=== PATIENT | male | born 1950 | race Two or more races ===

== ENCOUNTER 2020-01-28 10:33 | Emergency (ER) | payer MEDICARE ==
[~2020-01-28] VITALS: Ht 177.8 cm; Wt 77.6 kg
--- NOTE | 2020-01-28 10:45 | PHYS DOC ---
Past History Past Medical History: CAD, Diabetes Past Surgical History cardiac stents, hip surgery, back surgery Smoking: Chew Alcohol Use: None Drug Use: None General Adult EDM: Chief Complaint: NEURO SYMPTOMS/DEFICITS HPI: HPI: Patient is a 70 year old male who presents via private car driven by his for evaluation of left-sided weakness and difficulty walking. Onset of symptoms noticed since awakening at 7 AM today. Patient was last known well when going to bed last night. Patient has significant difficulty standing and walking which is new. Furthermore he states that he has had some trouble keeping bladder control. Patient is on Plavix and aspirin blood thinners. Patient did not fall last night but states that when he went to the couch this morning he did fall. Denies hitting his head or having recent loss of consciousness. There is no reported seizures or other activity. There is no visible signs of injury Review of Systems: Review of Systems: Constitutional: Denies fever or chills Eyes: Denies change in visual acuity HENT: Denies nasal congestion or sore throat Respiratory: Denies cough or shortness of breath Cardiovascular: Denies chest pain or edema GI: Denies abdominal pain, nausea, vomiting, bloody stools or diarrhea : Denies dysuria Musculoskeletal: Denies back pain or joint pain Integument: Denies rash Neurologic: Denies headache, has left arm and leg weakness, trouble standing and walking Endocrine: Denies polyuria or polydipsia Lymphatic: Denies swollen glands Psychiatric: Denies depression or anxiety Heart Score: HEART Score for Chest Pain: HEART Score for Chest Pain Response (Comments) Value History Slighlty/Non-Suspicious 0 ECG Normal 0 Age > 65 2 Risk Factors 1 or 2 Risk Factors 1 Troponin < Normal Limit 0 Total 3 Risk Factors: Risk Factors: DM, Current or recent (<one month) smoker, HTN, HLP, family history of CAD, obesity. Risk Scores: Score 0 - 3: 2.5% MACE over next 6 weeks - Discharge Home Score 4 - 6: 20.3% MACE over next 6 weeks - Admit for Clinical Observation Score 7 - 10: 72.7% MACE over next 6 weeks - Early Invasive Strategies Physical Exam: PE: Constitutional: Well developed, well nourished, moderate distress, non-toxic appearance. [] HENT: Normocephalic, atraumatic, bilateral external ears normal, oropharynx moist, no oral exudates, nose normal. [] Eyes: PERRL, EOMI, conjunctiva normal, no discharge. [] Neck: Normal range of motion, no tenderness, supple, no stridor. [] Cardiovascular:Heart rate regular rhythm, no murmur [] Lungs & Thorax: Bilateral breath sounds clear to auscultation [] Abdomen: Bowel sounds normal, soft, no tenderness, no masses, no pulsatile masses. [] Skin: Warm, dry, no erythema, no rash. [] Back: No tenderness. [] Extremities: No tenderness, no cyanosis, no clubbing, ROM intact, no edema. 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 Patient cannot stand or walk without significant assistance [] Psychologic: Affect normal, judgement normal, mood normal. [] Current Patient Data: Labs: Laboratory Tests Test 01/28/20 10:41 Glucose (Fingerstick) 437 mg/dL (70-99) H Vital Signs: Laboratory Tests Test 01/28/20 10:41 01/28/20 10:42 Glucose (Fingerstick) 437 mg/dL White Blood Count 6.7 x10^3/uL Red Blood Count 5.06 x10^6/uL Hemoglobin 15.5 g/dL Hematocrit 44.3 % Mean Corpuscular Volume 87 fL Mean Corpuscular Hemoglobin 31 pg Mean Corpuscular Hemoglobin Concent 35 g/dL Red Cell Distribution Width 12.8 % Platelet Count 189 x10^3/uL Sodium Level 134 mmol/L Potassium Level 3.7 mmol/L Chloride Level 98 mmol/L Carbon Dioxide Level 26 mmol/L Anion Gap 10 Blood Urea Nitrogen 17 mg/dL Creatinine 1.3 mg/dL Estimated GFR (Cockcroft-Gault) 54.4 Glucose Level 401 mg/dL Calcium Level 8.9 mg/dL EKG: EKG: EKG is normal sinus rhythm, rate 87, leftward axis, otherwise unremarkable EKG, not STEMI read at 1052 [] Radiology/Procedures: Radiology/Procedures: [[address] [address] IMAGING REPORT Signed PATIENT: GISSELLE ANGELO ACCOUNT: [id number] : 1950 LOCATION: ER AGE: 70 SEX: M EXAM STATUS: REG ER ORD. PHYSICIAN: WILLIAM GRIFFIN DO REASON: short of air PROCEDURE: PORTABLE CHEST 1V AP chest. HISTORY: Short of air, code stroke AP view was taken of the chest. Lungs are clear. Heart is normal in size. There is no pleural effusion. IMPRESSION: 1. No acute chest disease. Electronically signed by: Dallas Park MD (01/28/2020 10:50 AM) [id number] DICTATED AND SIGNED BY: DALLAS PARK MD DATE: 01/28/20 1050 CC: PCP,NO; WILLIAM GRIFFIN DO ~ ] Impressions: [place] [address] IMAGING REPORT Signed PATIENT: GISSELLE ANGELO ACCOUNT: [id number] : 1950 LOCATION: ER AGE: 70 SEX: M EXAM STATUS: REG ER ORD. PHYSICIAN: WILLIAM GRIFFIN DO REASON: new onset left side weakness PROCEDURE: CT CODE STROKE HEAD WO EXAM: CT Head without IV contrast CLINICAL HISTORY: Reason: new onset left side weakness / Spl. Instructions: / History: COMPARISON: None. TECHNIQUE: Routine CT of the head without contrast. Soft tissues and bone windows were reviewed. PQRS compliance statement - One or more of the following individualized dose reduction techniques were utilized for this study: 1. Automated exposure control 2. Adjustment of the mA and/or kV according to patient size 3. Use of iterative reconstruction technique FINDINGS: There is an acute right subdural hematoma measuring approximately 2.6 cm in thickness resulting in midline shift to the left measuring about 11 mm. There is also mild crowding of the right basilar cisterns. Subcortical and periventricular foci of hypoattenuation likely changes of chronic small vessel disease. There is prominence of the ventricles and sulci bilaterally consistent with generalized atrophy. The cerebellum and brainstem are unremarkable. The calvarium demonstrates no evidence of fracture or focal lesion. There is normal aeration of the visualized paranasal sinuses and mastoid air cells. The visualized portions of the orbits are normal. Atherosclerotic calcifications of the intracranial internal carotid and vertebral arteries is seen. IMPRESSION: 1. Acute right subdural hematoma measuring about 2.6 cm in thickness with leftward midline shift measuring 11 mm and mild crowding of the right basilar cisterns Findings discussed with WILLIAM GRIFFIN at 01/28/2020 10:52 AM. FOR INTERNAL CODING PURPOSES RESULT CODE: (C) Electronically signed by: Lino Gaytan MD (01/28/2020 10:55 AM) [id number] Course & Med Decision Making: Course & Med Decision Making Pertinent Labs and Imaging studies reviewed. (See chart for details) [] Dragon Disclaimer: Dragon Disclaimer: This electronic medical record was generated, in whole or in part, using a voice recognition dictation system. 1044 large right side brain bleed noted, I explained results to patient and he said to ask his where she would like to have him transferred. She sug gested [facility]. Presenting blood sugar [phone] [facility] transfer team was contacted. As soon as patient's brain images are clouded I will talk to the neurosurgeon for accepting physician. Patient is on aspirin and Plavix 1110 [facility] called back and accepted pt. Dr. Myles Gaytan is the accepting patient. Pt will be admitted to room XA3683. Patient is lucid and appropriate. Family updated on patient's status. Air ambulance on the way Departure Departure: Impression: Primary Impression: Subdural hematoma Additional Impressions: Left-sided muscle weakness Hyperglycemia CVA (cerebrovascular accident due to intracerebral hemorrhage) Disposition: 05 TRANSFER OTHER ([facility] under care of Dr. Myles Gaytan) Condition: STABLE Referrals: PCP,NO (PCP) Justification of Admission: Justification of Admission: Justification of Admission Dx: Yes Critical Care Time Critical care time was 30 minutes exclusive of procedures. This includes talking to family and [facility] for the transfer NIHSS - ED NIH Stroke Scale: NIH Stroke Scale Response (Comments) Value Level of Consciousness: 0 Alert/Responsive 0 LOC Questions: 0 Answers both correctly 0 LOC Commands: 0 Performs both tasks 0 Best Gaze: 0 Normal 0 Visual: 0 No visual loss 0 Facial Palsy: 0 Normal, symmetrical 0 Motor - Left Arm 2 Some effort 2 Motor - Right Arm 0 No drift 0 Motor - Left Leg 2 Some effort 2 Motor: Right Leg 0 No drift 0 Limb Ataxia: 0 Absent 0 Sensory: 0 No loss 0 Best Language: 1 Mild to mod aphasia 1 Dysathria: 1 Mild to moderate 1 Extinction and Inattention: 0 Normal 0 Total 6 WILLIAM GRIFFIN DO Jan 28, 2020 10:45
--- NOTE | 2020-01-28 10:53 | RAD ---
AP chest. HISTORY: Short of air, code stroke AP view was taken of the chest. Lungs are clear. Heart is normal in size. There is no pleural effusion. IMPRESSION: 1. No acute chest disease. Electronically signed by: Dallas Park MD (01/28/2020 10:50 AM) [id number]
[2020-01-28 10:56] LABS: HEMATOCRIT 44.3 % (39.0-53.0); HEMOGLOBIN 15.5 g/dL (13.0-17.5); RED BLOOD COUNT 5.06 x10^6/uL (4.30-5.70); RED CELL DISTRIBUTION WIDTH 12.8 % (11.5-14.5); WHITE BLOOD COUNT 6.7 x10^3/uL (4.0-11.0)
--- NOTE | 2020-01-28 10:58 | RAD ---
EXAM: CT Head without IV contrast CLINICAL HISTORY: Reason: new onset left side weakness / Spl. Instructions: / History: COMPARISON: None. TECHNIQUE: Routine CT of the head without contrast. Soft tissues and bone windows were reviewed. RS compliance statement - One or more of the following individualized dose reduction techniques were utilized for this study: 1. Automated exposure control 2. Adjustment of the mA and/or kV according to patient size 3. Use of iterative reconstruction technique FINDINGS: There is an acute right subdural hematoma measuring approximately 2.6 cm in thickness resulting in midline shift to the left measuring about 11 mm. There is also mild crowding of the right basilar cisterns. Subcortical and periventricular foci of hypoattenuation likely changes of chronic small vessel disease. There is prominence of the ventricles and sulci bilaterally consistent with generalized atrophy. The cerebellum and brainstem are unremarkable. The calvarium demonstrates no evidence of fracture or focal lesion. There is normal aeration of the visualized paranasal sinuses and mastoid air cells. The visualized portions of the orbits are normal. Atherosclerotic calcifications of the intracranial internal carotid and vertebral arteries is seen. IMPRESSION: 1. Acute right subdural hematoma measuring about 2.6 cm in thickness with leftward midline shift measuring 11 mm and mild crowding of the right basilar cisterns Findings discussed with WILLIAM GRIFFIN at 01/28/2020 10:52 AM. FOR INTERNAL CODING PURPOSES RESULT CODE: (C) Electronically signed by: Lino Gaytan MD (01/28/2020 10:55 AM) [id number]
[2020-01-28 11:04] LABS: CALCIUM 8.9 mg/dL (8.5-10.1); CREATININE 1.3 mg/dL (0.7-1.3); GFR 54.4; POTASSIUM 3.7 mmol/L (3.5-5.1)
--- NOTE | 2020-01-28 11:19 | EKG ---
[address] [address] Test Date: 2020-01-28 Test Time: 10:48:45 Pat Name: GISSELLE ANGELO Department: Room: Gender: M Perinatal Coordinator: : 1950 Requested By: WILLIAM GRIFFIN Order Number: [id number] Reading MD: Measurements Intervals [place] Rate: 87 P: 40 IN: 158 QRS: 18 QRSD: 86 T: 26 QT: 336 QTc: 405 Interpretive Statements SINUS RHYTHM NORMAL ECG RI6.02 No previous ECG available for comparison
[2020-01-28 11:24] VITALS: BP 154/86
== END 2020-01-28 11:40 | disposition short-term general hospital (02) ==
LOC: ER 10:33
DX: I63.9 Cerebral infarction, unspecified (principal); R53.1 Weakness; E11.65 Type 2 diabetes mellitus with hyperglycemia; I25.10 Atherosclerotic heart disease of native coronary artery without angina pectoris; Z98.890 Other specified postprocedural states
CPT/HCPCS: 36415; 70450; 71045; 80048; 82947; 84484; 85027; 85610; 85730; 93005; 99291

== ENCOUNTER 2020-11-01 18:48 | Emergency (ER) | payer MEDICARE ==
[~2020-11-01] VITALS: Ht 177.8 cm; Wt 75.0 kg
[2020-11-01] MEDS ORDERED: ASPIRIN CHEWABLE 81 MG TABLET. ONE (19:06)
[2020-11-01] MEDS ORDERED: ASPIRIN CHEWABLE 81 MG TABLET. PO ONE (19:15)
--- NOTE | 2020-11-01 19:33 | RAD ---
XR CHEST 2V History: Reason: CHEST PAIN / Spl. Instructions: / History: Comparison: January 27, 2021 Findings: No consolidation or pleural effusion. Normal heart size. No pneumothorax. Prior granulomatous disease within the chest. Nipple shadows projecting over the lung bases. Impression: 1. No acute cardiopulmonary process. Electronically signed by: Juan Palma DO (11/01/2020 7:30 PM) [facility] [place]
[2020-11-01 19:38] LABS: BASO # 0.1 x10^3/uL (0.0-0.2); BASO % 1 % (0-3); EOS # 0.2 x10^3/uL (0.0-0.7); EOS % 3 % (0-3); HEMOGLOBIN 13.6 g/dL (13.0-17.5); LYMPH # 2.1 x10^3/uL (1.0-4.8); LYMPH % 32 % (24-48); MEAN CORPUSCULAR HEMOGLOBIN 30 pg (25-35); MEAN CORPUSCULAR HGB CONC 34 g/dL (31-37); MEAN CORPUSCULAR VOLUME 88 fL (79-100); MONO # 0.6 x10^3/uL (0.0-1.1); MONO % 10 % (0-9); NEUT # 3.5 x10^3uL (1.8-7.7); NEUT % 54 % (31-73); PLATELET COUNT 227 x10^3/uL (140-400); RED BLOOD COUNT 4.57 x10^6/uL (4.30-5.70); RED CELL DISTRIBUTION WIDTH 13.5 % (11.5-14.5); WHITE BLOOD COUNT 6.5 x10^3/uL (4.0-11.0)
[2020-11-01 19:42] LABS: CALCIUM 8.9 mg/dL (8.5-10.1); CREATININE 1.1 mg/dL (0.7-1.3); POTASSIUM 3.7 mmol/L (3.5-5.1)
[2020-11-01 19:56] VITALS: BP 95/56
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
[2020-11-01 20:09] LABS: ALBUMIN 3.5 g/dL (3.4-5.0); ALBUMIN/GLOBULIN RATIO 1.1 (1.0-1.7); DIRECT BILIRUBIN 0.1 mg/dL (0.0-0.2); MAGNESIUM 1.5 mg/dL (1.8-2.4); TOTAL BILIRUBIN 0.3 mg/dL (0.2-1.0); TOTAL PROTEIN 6.8 g/dL (6.4-8.2)
[2020-11-01 20:13] LABS: ACETAMIN 78.1 mcg/mL (10-30); SALIC < 2.8 mg/dL (2.8-20.0)
[2020-11-01 20:14] LABS: ETHANOL < 10 mg/dL (0-10)
--- NOTE | 2020-11-01 22:04 | EKG ---
[facility] ED [facility] [address] [place] [id number] Test Date: 2020-11-01 Test Time: 18:56:47 Pat Name: RAE ANGELO Department: Room: Gender: M Hospice Nurse Practitioner: : 1950 Requested By: PEDRO CHADWICK Order Number: [id number] Reading MD: Measurements Intervals [place] Rate: 93 P: 39 MN: 156 QRS: 33 QRSD: 84 T: 26 QT: 332 QTc: 415 Interpretive Statements SINUS RHYTHM LOW LIMB LEAD VOLTAGE NO SPECIFIC ECG ABNORMALITIES RI6.02 No previous ECG available for comparison
--- NOTE | 2020-11-01 22:08 | EKG ---
[address] [address] Test Date: 2020-11-01 Test Time: 20:33:56 Pat Name: RAE ANGELO Department: Room: Gender: M Web Marketing Specialist: : 1950 Requested By: PEDRO CHADWICK Order Number: [id number] Reading MD: Measurements Intervals [place] Rate: 74 P: 29 MS: 160 QRS: 36 QRSD: 86 T: 34 QT: 382 QTc: 424 Interpretive Statements SINUS RHYTHM NORMAL ECG RI6.02 No previous ECG available for comparison
== END 2020-11-01 21:02 | disposition home or self-care (01) ==
LOC: ER 18:48
DX: R07.89 Other chest pain (principal); F41.9 Anxiety disorder, unspecified; R74.01 Elevation of levels of liver transaminase levels; E11.9 Type 2 diabetes mellitus without complications; I25.10 Atherosclerotic heart disease of native coronary artery without angina pectoris; I10 Essential (primary) hypertension; Z86.73 Personal history of transient ischemic attack (TIA), and cerebral infarction without residual deficits; F17.220 Nicotine dependence, chewing tobacco, uncomplicated; Z95.5 Presence of coronary angioplasty implant and graft
CPT/HCPCS: 36415; 71046; 80053; 80076; 80329; 82553; 83690; 83735; 84484; 85025; 85379; 85610; 85730; 93005; 99285; G0480

== ENCOUNTER 2021-01-17 09:56 | Emergency (ER) | payer MEDICARE ==
[~2021-01-17] VITALS: Ht 177.8 cm; Wt 76.1 kg
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
[2021-01-17 10:40] VITALS: BP 129/85
[2021-01-17 11:00] LABS: BASO # 0.1 x10^3/uL (0.0-0.2); BASO % 1 % (0-3); EOS # 0.1 x10^3/uL (0.0-0.7); EOS % 2 % (0-3); HEMATOCRIT 38.9 % (39.0-53.0); HEMOGLOBIN 13.7 g/dL (13.0-17.5); LYMPH # 1.3 x10^3/uL (1.0-4.8); LYMPH % 20 % (24-48); MEAN CORPUSCULAR HEMOGLOBIN 30 pg (25-35); MEAN CORPUSCULAR HGB CONC 35 g/dL (31-37); MEAN CORPUSCULAR VOLUME 85 fL (79-100); MONO # 0.6 x10^3/uL (0.0-1.1); MONO % 9 % (0-9); NEUT # 4.3 x10^3uL (1.8-7.7); NEUT % 67 % (31-73); PLATELET COUNT 187 x10^3/uL (140-400); RED BLOOD COUNT 4.55 x10^6/uL (4.30-5.70); RED CELL DISTRIBUTION WIDTH 13.8 % (11.5-14.5); WHITE BLOOD COUNT 6.4 x10^3/uL (4.0-11.0)
[2021-01-17 11:08] LABS: CALCIUM 8.7 mg/dL (8.5-10.1); CREATININE 1.1 mg/dL (0.7-1.3); GFR 65.8; POTASSIUM 3.8 mmol/L (3.5-5.1)
--- NOTE | 2021-01-17 11:17 | RAD ---
XR CHEST 1V History: Reason: shob / Spl. Instructions: / History: Comparison: November 01, 2020 Findings: No consolidation or pleural effusion. Normal heart size. No pneumothorax. Impression: 1. No acute cardiopulmonary process. Electronically signed by: Juan Palma DO (01/17/2021 11:15 AM) [facility]
[2021-01-17 11:21] LABS: ALBUMIN/GLOBULIN RATIO 1.3 (1.0-1.7); TOTAL BILIRUBIN 0.7 mg/dL (0.2-1.0)
[2021-01-17] MEDS ORDERED: METF100010 PO (11:36)
[2021-01-17] MEDS ORDERED: ATOR40TA PO (11:36)
[2021-01-17] MEDS ORDERED: LANC1COM6 MC (11:36)
[2021-01-17] MEDS ORDERED: LANC1COM MC (11:36)
--- NOTE | 2021-01-17 21:55 | EKG ---
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
== END 2021-01-17 12:21 | disposition home or self-care (01) ==
LOC: ER 09:56
DX: E11.9 Type 2 diabetes mellitus without complications (principal); I10 Essential (primary) hypertension; Z86.73 Personal history of transient ischemic attack (TIA), and cerebral infarction without residual deficits; Z59.0 Homelessness; Y90.8 Blood alcohol level of 240 mg/100 ml or more
CPT/HCPCS: 36415; 71045; 80053; 82947; 83880; 84484; 85025; 93005; 99285; G0480

== ENCOUNTER 2021-03-28 11:05 | Emergency (ER) | payer MEDICARE ==
[~2021-03-28] VITALS: Ht 177.8 cm; Wt 73.0 kg
[~2021-03-28 11:05] MED LIST: ATOR40TA PO; LANC1COM MC; LANC1COM6 MC; METF100010 PO
--- NOTE | 2021-03-28 11:35 | EKG ---
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
[2021-03-28 11:46] LABS: BASO # 0.1 x10^3/uL (0.0-0.2); BASO % 1 % (0-3); EOS # 0.4 x10^3/uL (0.0-0.7); EOS % 7 % (0-3); HEMATOCRIT 37.3 % (39.0-53.0); HEMOGLOBIN 12.8 g/dL (13.0-17.5); LYMPH # 2.1 x10^3/uL (1.0-4.8); LYMPH % 35 % (24-48); MEAN CORPUSCULAR HEMOGLOBIN 30 pg (25-35); MEAN CORPUSCULAR HGB CONC 34 g/dL (31-37); MEAN CORPUSCULAR VOLUME 88 fL (79-100); MONO # 0.5 x10^3/uL (0.0-1.1); MONO % 9 % (0-9); NEUT # 2.8 x10^3uL (1.8-7.7); NEUT % 48 % (31-73); PLATELET COUNT 153 x10^3/uL (140-400); RED BLOOD COUNT 4.26 x10^6/uL (4.30-5.70); RED CELL DISTRIBUTION WIDTH 14.8 % (11.5-14.5); WHITE BLOOD COUNT 5.9 x10^3/uL (4.0-11.0)
[2021-03-28 11:48] LABS: CALCIUM 8.2 mg/dL (8.5-10.1); GFR 73.5; POTASSIUM 3.6 mmol/L (3.5-5.1)
[2021-03-28 11:56] LABS: ALBUMIN 3.3 g/dL (3.4-5.0); TOTAL BILIRUBIN 0.3 mg/dL (0.2-1.0); TOTAL PROTEIN 6.5 g/dL (6.4-8.2)
--- NOTE | 2021-03-28 12:24 | RAD ---
CT HEAD AND C-SPINE WO dated 03/28/2021 11:40 AM Indication:Reason: falls / Spl. Instructions: / History: Comparison: CT head 01/28/2020. Technique: CT images were obtained. Sagittal and coronal reconstructions of the cervical spine were p erformed. One or more of the following individualized dose reduction techniques were utilized for this examinat ion: 1. Automated exposure control 2. Adjustment of the mA and/or kV according to patient size 3. Use of iterative reconstruction technique Findings: CT head: The right side subdural hemorrhage has resolved or was evacuated. There is evidence of a aircraft designer niotomy defect on the right.. No new hemorrhage or abnormal extra-axial fluid collection is seen. Mid line shift shown previously has resolved. The ventricles and basilar cisterns are normally positioned . There is patchy low attenuation in the cerebral white matter suggesting chronic small vessel ischem ic injury. Bone windows show no apparent fracture of the skull or abnormal sinus or mastoid opacifica tion. CT cervical spine: Alignment is normal. There is no loss of vertebral body height or prevertebral sof t tissue swelling. No fracture line is seen. There is some disc narrowing at C3-4, C5-6 and C6-7. No destructive process is seen. Evaluation of the soft tissue components of the canal is limited without intrathecal contrast. Incidental note is made of some opacity posteriorly in the left upper lobe. This has a bandlike appea esteban on sagittal and coronal images, and is favored to represent scarring. There are no available co mparison studies. IMPRESSION: CT head: Resolution of previous subdural. No acute abnormality. CT cervical spine: Degenerative changes. No acute abnormality. Opacity shown posteriorly in the left upper lobe is likely scarring, although is incompletely demonst rated. Electronically signed by: Rodney Hendricks Jr., MD (03/28/2021 12:22 PM) [id number]
--- NOTE | 2021-03-28 12:30 | RAD ---
XR CHEST 1V CLINICAL INDICATIONS: Reason: dizzy COMPARISON: January 17, 2021. Findings: New bibasilar lung infiltrates are seen. No pleural effusion or pneumothorax is seen. The h eart size, pulmonary vasculature, mediastinum and both siobhan are unremarkable. IMPRESSION: New bibasilar lung infiltrates. Electronically signed by: Sahil Craig MD (03/28/2021 12:27 PM) [id number]
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
[2021-03-28] MEDS ORDERED: MORPHINE SULFATE 4 MG/ML DISP.SYRIN. IV ONE (13:30)
[2021-03-28] MEDS ORDERED: ONDANSETRON PF 4 MG/2 ML VIAL. IVP ONE (13:30)
[2021-03-28 14:06] LABS: BACTERIA,URINE 0 /HPF (0-FEW); BILIRUBIN,URINE NEG (NEG); CLARITY,URINE CLEAR; COLOR,URINE YELLOW; GLUCOSE,URINE NEG (NEG); NITRITE,URINE NEG (NEG); RBC,URINE 0 /HPF (0-2); SQUAMOUS EPITHELIAL CELL,UR OCC /LPF; UROBILINOGEN,URINE 0.2 mg/dL (0.2 mg/dL); WBC,URINE 0 /HPF (0-4)
[2021-03-28] MEDS ORDERED: KETOROLAC 15 MG/ML VIAL. IVP ONE (14:15)
[2021-03-28] MEDS ORDERED: diphenhydrAMINE 50 MG/ML VIAL IVP ONE (14:15)
[2021-03-28] MEDS ORDERED: AZIT250T6 PO (14:31)
[2021-03-28] MEDS ORDERED: OFLO5DRO7 LEFT EAR (14:31)
[2021-03-28 14:50] VITALS: BP 124/76
== END 2021-03-28 14:55 | disposition home or self-care (01) ==
LOC: ER 11:05
DX: J18.9 Pneumonia, unspecified organism (principal); H60.502 Unspecified acute noninfective otitis externa, left ear; I10 Essential (primary) hypertension; F17.220 Nicotine dependence, chewing tobacco, uncomplicated; Z86.73 Personal history of transient ischemic attack (TIA), and cerebral infarction without residual deficits
CPT/HCPCS: 36415; 70450; 71045; 72125; 80053; 81001; 84484; 85025; 93005; 96374; 96375; 99285; J1200; J1885; J2270; J2405